=== PATIENT | female | born 1985 | race Two or more races ===

== ENCOUNTER 2021-11-27 12:48 | Outpatient (CLI) | payer OTHER | END 2021-11-27 13:55 | disposition home or self-care (01) | LOC: PRENATAL 12:48 | PROVIDERS: ATTEND Obstetrics & Gynecology Maternal & Fetal Medicine | DX: O26.849 Uterine size-date discrepancy, unspecified trimester (principal); O36.8199 Decreased fetal movements, unspecified trimester, other fetus; O24.419 Gestational diabetes mellitus in pregnancy, unspecified control; Z3A.32 32 weeks gestation of pregnancy ==

== ENCOUNTER 2021-12-28 13:19 | Outpatient (CLI) | payer OTHER | END 2021-12-28 14:13 | disposition home or self-care (01) | LOC: PRENATAL 13:19 | DX: O26.849 Uterine size-date discrepancy, unspecified trimester (principal); O36.8199 Decreased fetal movements, unspecified trimester, other fetus; O24.419 Gestational diabetes mellitus in pregnancy, unspecified control; Z3A.37 37 weeks gestation of pregnancy ==

== ENCOUNTER 2022-01-05 14:00 | Inpatient (IN) | payer OTHER ==
[~2022-01-05] VITALS: Ht 165.1 cm; Wt 3.2 kg
[2022-01-19] MEDS ORDERED: ASA81 MG PO (11:03)
[2022-01-19] MEDS ORDERED: PRENATAL TABLE1 EAC3 (11:03)
== END 2022-01-22 13:29 | disposition home or self-care (01) | DRG 788 ==
LOC: OB/GYN 01-18 14:00 → LDR 01-19 07:33 → OB/GYN 01-20 11:27
PROVIDERS: ADMIT Obstetrics & Gynecology; ATTEND Obstetrics & Gynecology
PROC: 4A1HXCZ Monitoring of Products of Conception, Cardiac Rate, External Approach (ICD-10-PCS; 2022-01-20)
PROC: 10D00Z1 Extraction of Products of Conception, Low, Open Approach (ICD-10-PCS; principal; 2022-01-20 09:00)
DX: O33.8 Maternal care for disproportion of other origin (principal); Z3A.40 40 weeks gestation of pregnancy; Z37.0 Single live birth; Z20.822 Contact with and (suspected) exposure to COVID-19